=== PATIENT | male | born 1980 | race Caucasian/White ===

== ENCOUNTER 2018-04-01 08:23 | Inpatient (IN) | payer MEDICAID ==
[2018-04-01] MEDS: ONDANSETRON 4 MG INJ IV ×4 (08:49→15:52)
[2018-04-01] MEDS: SOD CHLORIDE 0.9% 1,000 ML IV ×4 (08:49→22:52)
[2018-04-01] MEDS: morphine 4 MG/ML VIAL IV (08:49)
[2018-04-01 09:20] LABS: ADD MAN DIFF? NO
[2018-04-01 09:24] LABS: BASOPHILS % 0.2 % (0.0-2.0); EOSINOPHILS # 0.1 10^3/ul (0.0-0.5); EOSINOPHILS % 0.7 % (0.0-7.0); HEMATOCRIT 45.3 % (42.0-52.0); HEMOGLOBIN 16.7 g/dl (14.0-18.0); LYMPHOCYTES # 1.1 10^3/ul (0.8-2.9); LYMPHOCYTES % 10.3 % (15.0-51.0); MEAN CORPUSCULAR HEMOGLOBIN 32.2 pg (29.0-33.0); MEAN CORPUSCULAR HGB CONC 36.9 g/dl (32.0-37.0); MEAN CORPUSCULAR VOLUME 87.5 fl (82.0-101.0); MEAN PLATELET VOLUME 11.1 fl (7.4-10.4); MONOCYTE # 0.5 10^3/ul (0.3-0.9); MONOCYTES % 4.4 % (0.0-11.0); NEUTROPHIL # 9.1 10^3/ul (1.6-7.5); PLATELET COUNT 194 10^3/UL (140-415); RED BLOOD COUNT 5.18 10^6/ul (4.70-6.10)
[2018-04-01 09:24] LABS: WHITE BLOOD COUNT 10.8 10^3/ul (4.8-10.8)
[2018-04-01 09:26] LABS: ADD UMIC YES; UR ASCORBIC ACID 40 mg/dL (NEGATIVE); UR BILIRUBIN (Dip) NEGATIVE (NEGATIVE); UR BLOOD (Dip) NEGATIVE (NEGATIVE); UR CLARITY CLEAR (CLEAR); UR COLOR YELLOW (YELLOW); UR GLUCOSE (Dip) NEGATIVE (NEGATIVE); UR KETONES (Dip) TRACE mg/dL (NEGATIVE); UR LEUKOCYTE ESTERASE (Dip) NEGATIVE Leu/ul (NEGATIVE); UR MUCUS FEW /HPF (NONE SEEN); UR NITRITE (Dip) NEGATIVE (NEGATIVE); UR RBC 2 /HPF (0-5); UR SPECIFIC GRAVITY (Dip) 1.024 (1.003-1.030); UR TOTAL PROTEIN (Dip) 2+ mg/dl (NEGATIVE); UR UROBILINOGEN (Dip) NEGATIVE (NEGATIVE); UR WBC 1 /HPF (0-5)
[2018-04-01 09:47] LABS: ALANINE AMINOTRANSFERASE 149 IU/L (13-69); ALBUMIN 4.8 g/dl (3.3-4.9); ALBUMIN/GLOBULIN RATIO 1.37; ALKALINE PHOSPHATASE 105 IU/L (42-121); ANION GAP 15 (8-16); ASPARTATE AMINO TRANSFERASE 65 IU/L (15-46); BILIRUBIN,INDIRECT 0.9 mg/dl (0-1.1); BILIRUBIN,TOTAL 0.9 mg/dl (0.2-1.3); BLOOD UREA NITROGEN 19 mg/dl (7-20); CALCIUM 9.5 mg/dl (8.4-10.2); CARBON DIOXIDE 23 mmol/L (21-31); CHLORIDE 106 mmol/L (97-110); CREATININE 0.75 mg/dl (0.61-1.24); GLUCOSE 143 mg/dl (70-220); LIPASE 1907 U/L (23-300); POTASSIUM 3.8 mmol/L (3.5-5.1); SODIUM 140 mmol/L (135-144); TOTAL PROTEIN 8.3 g/dl (6.1-8.1)
[2018-04-01] MEDS: HYDROmorphONE 1 MG/ML SYG IV ×2 (10:32→13:04)
[2018-04-01] MEDS ORDERED: NACL 0.9% 3 ML SYG IV (14:30)
[2018-04-01] MEDS ORDERED: ACETAMINOPHEN 325 MG TAB PO (14:30)
[2018-04-01] MEDS: morphine 2 MG INJ IV ×2 (15:52→19:34)
[2018-04-01] MEDS: KETOROLAC 30 MG INJ IV (20:51)
[2018-04-01] MEDS: FAMOTIDINE 20 MG INJ IV (20:51)
[2018-04-02] MEDS: NITROGLYCERIN (SL) 0.4 MG TAB SL ×3 (02:54→03:06)
[2018-04-02] MEDS: morphine 2 MG INJ IV ×4 (03:07→12:37)
[2018-04-02 03:45] LABS: ADD MAN DIFF? NO
[2018-04-02 03:56] LABS: ALANINE AMINOTRANSFERASE 116 IU/L (13-69); ALBUMIN 4.2 g/dl (3.3-4.9); ALBUMIN/GLOBULIN RATIO 1.35; ALKALINE PHOSPHATASE 83 IU/L (42-121); AMYLASE 173 U/L (11-123); ANION GAP 15 (8-16); ASPARTATE AMINO TRANSFERASE 45 IU/L (15-46); BLOOD UREA NITROGEN 10 mg/dl (7-20); CALCIUM 9.1 mg/dl (8.4-10.2); CARBON DIOXIDE 24 mmol/L (21-31); CHLORIDE 102 mmol/L (97-110); CHOL/HDL RATIO 3.8 RATIO; CHOLESTEROL 199 mg/dl (100-200); CREATININE 0.69 mg/dl (0.61-1.24); GLUCOSE 130 mg/dl (70-220); HDL CHOLESTEROL 52 mg/dl (28-63); LDL CHOLESTEROL,CALCULATED 125 mg/dl; LIPASE 1078 U/L (23-300); MAGNESIUM 1.7 mg/dl (1.7-2.5); PHOSPHORUS 3.4 mg/dl (2.5-4.9); POTASSIUM 3.9 mmol/L (3.5-5.1); SODIUM 137 mmol/L (135-144); TOTAL PROTEIN 7.3 g/dl (6.1-8.1); TRIGLYCERIDES 112 mg/dl (0-149)
[2018-04-02] MEDS: KETOROLAC 30 MG INJ IV ×3 (04:04→18:43)
[2018-04-02 04:09] LABS: BASOPHILS % 0.1 % (0.0-2.0); EOSINOPHILS % 0.1 % (0.0-7.0); HEMATOCRIT 43.5 % (42.0-52.0); HEMOGLOBIN 15.9 g/dl (14.0-18.0); LYMPHOCYTES # 0.9 10^3/ul (0.8-2.9); LYMPHOCYTES % 6.8 % (15.0-51.0); MEAN CORPUSCULAR HEMOGLOBIN 31.9 pg (29.0-33.0); MEAN CORPUSCULAR HGB CONC 36.6 g/dl (32.0-37.0); MEAN CORPUSCULAR VOLUME 87.3 fl (82.0-101.0); MEAN PLATELET VOLUME 10.8 fl (7.4-10.4); MONOCYTE # 0.9 10^3/ul (0.3-0.9); MONOCYTES % 6.5 % (0.0-11.0); NEUTROPHIL # 11.9 10^3/ul (1.6-7.5); NEUTROPHILS % 86.1 % (39.0-77.0); PLATELET COUNT 189 10^3/UL (140-415); RED BLOOD COUNT 4.98 10^6/ul (4.70-6.10); RED CELL DISTRIBUTION WIDTH 12.2 % (11.5-14.5)
[2018-04-02 04:09] LABS: TROPONIN-I < 0.012 ng/ml (0.000-0.120)
[2018-04-02 04:09] LABS: WHITE BLOOD COUNT 13.8 10^3/ul (4.8-10.8)
[2018-04-02 05:11] LABS: HEMOGLOBIN A1C 5.3 % (0-5.9)
[2018-04-02] MEDS: SOD CHLORIDE 0.9% 1,000 ML IV ×3 (05:30→23:47)
[2018-04-02] MEDS: FAMOTIDINE 20 MG INJ IV ×2 (08:01→20:51)
[2018-04-02] MEDS: ONDANSETRON 4 MG INJ IV (12:40)
[2018-04-02] MEDS: morphine LIQ (10 MG/5 ML) CUP PO ×2 (15:09→20:51)
[2018-04-03] MEDS: morphine LIQ (10 MG/5 ML) CUP PO ×4 (01:55→18:57)
[2018-04-03] MEDS: KETOROLAC 30 MG INJ IV ×3 (05:32→20:30)
[2018-04-03] MEDS: SOD CHLORIDE 0.9% 1,000 ML IV ×4 (06:08→23:38)
[2018-04-03 06:43] LABS: ALANINE AMINOTRANSFERASE 78 IU/L (13-69); ALBUMIN/GLOBULIN RATIO 1.14; ALKALINE PHOSPHATASE 74 IU/L (42-121); AMYLASE 108 U/L (11-123); ANION GAP 13 (8-16); ASPARTATE AMINO TRANSFERASE 37 IU/L (15-46); BILIRUBIN,INDIRECT 0.9 mg/dl (0-1.1); BILIRUBIN,TOTAL 0.9 mg/dl (0.2-1.3); BLOOD UREA NITROGEN 12 mg/dl (7-20); CALCIUM 8.8 mg/dl (8.4-10.2); CARBON DIOXIDE 23 mmol/L (21-31); CHLORIDE 107 mmol/L (97-110); CREATININE 0.75 mg/dl (0.61-1.24); GLUCOSE 96 mg/dl (70-220); LIPASE 393 U/L (23-300); POTASSIUM 3.9 mmol/L (3.5-5.1); SODIUM 139 mmol/L (135-144); TOTAL PROTEIN 7.5 g/dl (6.1-8.1)
[2018-04-03] MEDS: FAMOTIDINE 20 MG INJ IV ×2 (08:35→20:27)
[2018-04-03] MEDS: ONDANSETRON 4 MG INJ IV (08:41)
[2018-04-04] MEDS: KETOROLAC 30 MG INJ IV ×2 (02:29→08:41)
[2018-04-04] MEDS: SOD CHLORIDE 0.9% 1,000 ML IV ×2 (06:08→07:38)
[2018-04-04 06:16] LABS: ALANINE AMINOTRANSFERASE 70 IU/L (13-69); ALBUMIN 3.3 g/dl (3.3-4.9); ALBUMIN/GLOBULIN RATIO 1.06; ALKALINE PHOSPHATASE 77 IU/L (42-121); AMYLASE 58 U/L (11-123); ANION GAP 15 (8-16); ASPARTATE AMINO TRANSFERASE 40 IU/L (15-46); BILIRUBIN,INDIRECT 0.4 mg/dl (0-1.1); BILIRUBIN,TOTAL 0.4 mg/dl (0.2-1.3); BLOOD UREA NITROGEN 10 mg/dl (7-20); CALCIUM 8.6 mg/dl (8.4-10.2); CARBON DIOXIDE 24 mmol/L (21-31); CHLORIDE 106 mmol/L (97-110); CREATININE 0.71 mg/dl (0.61-1.24); GLUCOSE 105 mg/dl (70-220); LIPASE 152 U/L (23-300); POTASSIUM 3.9 mmol/L (3.5-5.1); SODIUM 141 mmol/L (135-144); TOTAL PROTEIN 6.4 g/dl (6.1-8.1)
[2018-04-04] MEDS: FAMOTIDINE 20 MG INJ IV (08:41)
== END 2018-04-04 11:15 | disposition home or self-care (01) | DRG 440 ==
LOC: FTE 08:23 → MS2 10:55
DX: K85.20 Alcohol induced acute pancreatitis without necrosis or infection (principal); K86.0 Alcohol-induced chronic pancreatitis; K70.9 Alcoholic liver disease, unspecified; F10.10 Alcohol abuse, uncomplicated; K21.9 Gastro-esophageal reflux disease without esophagitis; K76.0 Fatty (change of) liver, not elsewhere classified
CPT/HCPCS: 36415; 74176; 80053; 80061; 81001; 82150; 83036; 83690; 83735; 84100; 84443; 84484; 85025; 93005; 96361; 96374; 96375; 96376; 99285-25